=== PATIENT | male | born 1960 | race African-American/Black ===

== ENCOUNTER → 2018-01-18 | Day surgery (SDC) | payer BC ==
[~2018-01-18] MED LIST: GENTAMICIN SULFATE 80 MG/2 ML VIAL ONE; LACTATED RINGER'S 1000 ML INJ 1,000 ML ONE; MIDAZOLAM HCL 2 MG/2 ML VIAL ONE; NS 100 ML (PAB BAG) 100 ML IV ONE; ONDANSETRON HCL 4 MG/2 ML VIAL IV PUSH ONE; PROPOFOL 200 MG/20 ML AMP IV ONE
--- NOTE | 2018-01-18 13:56 | TN ---
cc: Nithin Larson MD DATE OF SURGERY: 01/18/2018 PREOPERATIVE DIAGNOSIS: Severe recurrent bulbous urethral stricture (ICD-10 code of N35.9). POSTOPERATIVE DIAGNOSIS: Severe recurrent bulbous urethral stricture (ICD-10 code of N35.9). PROCEDURE: Cystourethroscopy with direct visual internal urethrotomy (DVIU) (CPT code 50222). INDICATIONS: Mr. Farmer is a 57-year-old gentleman who, in June, underwent a direct visual internal urethrotomy for a severe bulbous urethral stricture after a straddle injury 20+ years ago and has noticed decrease in his stream and under local cystoscopy shows recurrence of the stricture. He has opted for a trial of repeat urethrotomy and self-obturation. FINDINGS: Normal urethra with the exception of a very severe tight bulbous urethral stricture grade IV, approximately 1 cm with significant spongiofibrosis. The prostatic urethra shows some mild obstruction, bilateral hyperplasia with open bladder neck. Ureteral orifice normal size, shape and position, effluxing clear urine. There is some mild trabeculation. No diverticula, cellules, tumors or calcification identified. PROCEDURE: Procedure as well as the risks and benefits were explained to patient and informed consent was obtained. The patient was taken to the major operative theater where he was placed in supine position. Patient was identified, as well as the operative site. A universal timeout was performed in standard fashion. At this time, general anesthetic and prophylactic intravenous antibiotics consisting of gentamicin 80 mg was administered. After adequate anesthetic, he was placed in the low dorsal lithotomy position, prepped and draped in the usual sterile fashion. At this time, a 22.5 Burmese cystoscope with a 30-degree lens was inserted into the urethra to the level of the severe strictured area at the bulbous urethra. At this time, a 0.035 inch hybrid guidewire was placed as a safety wire through the opening of the structure and presumably into the bladder. The cystoscope was removed, leaving the guidewire in place attached to the drapes. At this time, an optical urethrotome was placed with a serrated blade, and direct visual internal urethrotomy was performed at the 12 o'clock position in the standard fashion. There was significant spongiofibrosis. At this time, the optical urethrotome was able to be entered into the bladder. Bladder was systematically surveyed, and the optical urethrotome was removed and an 18 Burmese Benítez catheter was placed without difficulty into the bladder with clear urine effluxing; 10 mL of sterile water was insufflated to the balloon and placed to straight drain. The patient was then placed back in the supine position. He tolerated the procedure well, emerged from anesthetic without difficulty and was transferred to the recovery room in stable condition to be discharged home when criteria is met. There were no obvious complications. The patient will require Benítez catheter removal in approximately 72 hours and start self-obturation within a week. MD ARSEN Fernando/CHELE , 01:33 PM , 01:54 PM
== END | disposition home or self-care (01) ==
LOC: ESDC 09:51
PROVIDERS: ATTEND Urology
DX: N35.9 Urethral stricture, unspecified (principal)
CPT/HCPCS: 00910; 52276; C1769; J1580; J2250; J2405; J3010; J7120